=== PATIENT | female | born 1985 | race African-American/Black ===

== ENCOUNTER 2018-12-30 03:58 | Emergency (ER) | payer OTHER ==
[~2018-12-30] VITALS: Ht 162.6 cm; Wt 49.4 kg
[2018-12-30 04:04] VITALS: BP 108/77
== END 2018-12-30 05:01 ==
LOC: ER 04:00
DX: Z02.89 Encounter for other administrative examinations (principal); F17.200 Nicotine dependence, unspecified, uncomplicated